=== PATIENT | female | born 1965 ===

== ENCOUNTER 2017-11-10 12:00 | Inpatient (IN) | payer OTHER ==
[~2017-11-10] VITALS: Ht 152.4 cm; Wt 55.8 kg
[2017-11-10] MEDS ORDERED: SYNTHROID137 MCG PO (12:59)
[2017-11-10] MEDS ORDERED: PROTONIX40 MG PO (13:00)
[2017-11-10] MEDS ORDERED: FIORINAL-COD 31 EACH PO (13:00)
== END 2017-11-20 20:52 | disposition home or self-care (01) | DRG 330 ==
LOC: SURH 11-14 10:28 → O/R 11-14 10:28 → RECOVERY 11-14 12:00 → EDSTATUS 11-14 12:00 → SURH 11-14 12:00 → CIR.AMB 11-14 12:00 → SURH 11-14 13:30
PROVIDERS: Colon & Rectal Surgery
PROC: 0DNE4ZZ Release Large Intestine, Percutaneous Endoscopic Approach (ICD-10-PCS; 2017-11-14)
PROC: 0DJD8ZZ Inspection of Lower Intestinal Tract, Via Natural or Artificial Opening Endoscopic (ICD-10-PCS; 2017-11-14)
PROC: 0DTN4ZZ Resection of Sigmoid Colon, Percutaneous Endoscopic Approach (ICD-10-PCS; principal; 2017-11-14 13:30)
PROC: BW21Y0Z Computerized Tomography (CT Scan) of Abdomen and Pelvis using Other Contrast, Unenhanced and Enhanced (ICD-10-PCS; 2017-11-19)
DX: K57.32 Diverticulitis of large intestine without perforation or abscess without bleeding (principal); K43.0 Incisional hernia with obstruction, without gangrene; N39.0 Urinary tract infection, site not specified; T81.4XXA Infection following a procedure, initial encounter; L03.311 Cellulitis of abdominal wall; E03.8 Other specified hypothyroidism; G43.809 Other migraine, not intractable, without status migrainosus; D64.89 Other specified anemias

== ENCOUNTER → 2018-11-25 11:22 | Outpatient (CLI) | payer OTHER ==
[~2018-11-25 11:22] MED LIST: FIORINAL-COD 31 EACH PO; PROTONIX40 MG PO; SYNTHROID137 MCG PO
== END | disposition home or self-care (01) ==
LOC: LAB 11:22
DX: K43.2 Incisional hernia without obstruction or gangrene (principal); K42.9 Umbilical hernia without obstruction or gangrene

== ENCOUNTER 2018-12-09 06:10 | Day surgery (SDC) | payer OTHER ==
[~2018-12-09 06:10] MED LIST changes: +B-12500 MCG PO; +FOLIC ACID1 MG PO; +NEURONTIN300 MG PO; +ULTRACET PO; +ZOLOFT100 MG PO
[2018-12-09] MEDS ORDERED: NEURONTIN600 MG PO (11:08)
[2018-12-09] MEDS ORDERED: PERCOCET 5-3251 EACH PO (11:09)
[2018-12-09] MEDS ORDERED: POLY119PG PO (11:10)
[2018-12-09] MEDS ORDERED: SURFAK240 M1 PO (11:10)
== END 2018-12-09 14:10 | disposition home or self-care (01) ==
LOC: CIR.AMB 06:10
DX: K42.0 Umbilical hernia with obstruction, without gangrene (principal); K43.0 Incisional hernia with obstruction, without gangrene; K66.0 Peritoneal adhesions (postprocedural) (postinfection)